=== PATIENT | female | born 1965 | race Two or more races ===

== ENCOUNTER 2016-05-24 06:06 | Emergency (ER) | payer OTHER ==
[~2016-05-24] VITALS: Ht 157.5 cm; Wt 59.0 kg
[2016-05-24] MEDS ORDERED: KETOROLAC TROMETH 60MG/2ML VIAL IM ONE (08:30)
[2016-05-24 09:06] VITALS: BP 122/48
== END 2016-05-24 09:08 | disposition home or self-care (01) ==
LOC: ER 06:09
DX: M50.322 Other cervical disc degeneration at C5-C6 level (principal); M48.02 Spinal stenosis, cervical region; M54.12 Radiculopathy, cervical region
CPT/HCPCS: 72125; 73030; 96372; 99284; J1885